=== PATIENT | female | born 1950 | race Asian ===

== ENCOUNTER 2021-03-23 18:21 | Emergency (ER) | payer BC ==
[~2021-03-23] VITALS: Ht 160 cm; Wt 65.8 kg
--- NOTE | 2021-03-23 18:23 | NUR ---
Patient to ER bed H2 to gown for evaluation. Side rails up.
--- NOTE | 2021-03-23 18:25 | NUR ---
PT [facility]ESSICA [facility] FOR AN OK TO BOOK.
[2021-03-23 18:27] VITALS: BP_SYST 137
--- NOTE | 2021-03-23 19:44 | NUR ---
ER Dr. TAY at bedside examining patient.
[2021-03-23 20:00] VITALS: BP_SYST 121
--- NOTE | 2021-03-23 20:00 | NUR ---
Patient AND DEPUTY given written and verbal discharge instructions and verbalizes understanding. ER MD discussed with patient the results and treatment provided. Patient in stable condition. ID arm band removed. NO RX given. Patient educated on pain management and to follow up with PMD. Pain Scale 0/10 Opportunity for questions provided and answered.
== END 2021-03-23 20:00 ==
LOC: SED 18:21
DX: E16.2 Hypoglycemia, unspecified (principal); M19.072 Primary osteoarthritis, left ankle and foot; M19.071 Primary osteoarthritis, right ankle and foot; E78.5 Hyperlipidemia, unspecified
CPT/HCPCS: 82962; 99283